=== PATIENT | male | born 1980 | race Caucasian/White ===

== ENCOUNTER 2018-02-06 23:59 | Emergency (ER) | payer SELFPAY ==
[~2018-02-06] VITALS: Ht 167.6 cm; Wt 90.0 kg
[2018-02-07 00:58] LABS: BASOPHILS % 0.1 % (0.0-2.0); EOSINOPHILS % 3.3 % (0.0-5.0); HEMATOCRIT. 40.5 % (42.0-52.0); HEMOGLOBIN. 14.2 g/dL (14.0-18.0); LYMPHOCYTES % 23.4 % (20.0-50.0); MEAN CORPUSCULAR HEMOGLOBIN 30.5 pg (28.0-32.0); MEAN CORPUSCULAR VOLUME 86.6 fL (80.0-94.0); MEAN PLATELET VOLUME 9.5 fl (7.4-10.4); MONOCYTES % 5.1 % (2.0-8.0); NEUTROPHILS % 68.1 % (40.0-76.0); PLATELET 192 x1000/uL (130-400); RED BLOOD CELL COUNT 4.67 mill/uL (4.7-6.1); RED CELL DISTRIBUTION WIDTH 12.4 % (11.6-14.6)
[2018-02-07 01:03] LABS: INR 1.1; PROTHROMBIN TIME 10.9 sec (9.4-11.6)
[2018-02-07 01:04] LABS: CHLORIDE 104 mEq/L (98-107)
[2018-02-07] MEDS ORDERED: MAGNESIUM/ALUMINUM HYDROXIDE/SIMETHICONE 30ML UDC PO STA (04:35)
[2018-02-07] MEDS ORDERED: VISCOUS LIDOCAINE 2% 15 ML UDC PO STA (04:35)
[2018-02-07 05:11] LABS: ETHANOL BLOOD < 10 mg/dL
[2018-02-07 05:30] VITALS: BP 103/57
== END 2018-02-07 05:43 | disposition home or self-care (01) ==
LOC: ER 23:59
DX: R07.89 Other chest pain (principal); E11.9 Type 2 diabetes mellitus without complications; F17.200 Nicotine dependence, unspecified, uncomplicated; Z98.890 Other specified postprocedural states
CPT/HCPCS: 36415; 71045; 80053; 83690; 83880; 84484; 85025; 85379; 85610; 93005; 99285; G0482; Z7610

== ENCOUNTER 2024-03-12 12:57 | Emergency (ER) | payer MEDICAID ==
[~2024-03-12] VITALS: Ht 182.9 cm; Wt 72.0 kg
[2024-03-12 13:11] VITALS: BP 108/56; PULSE 74; RESP 20; TEMP 98; O2SAT 99
[2024-03-12 14:04] LABS: BASOPHILS % 1.4 % (0.0-2.0); EOSINOPHILS % 2.3 % (0.0-5.0); HEMATOCRIT. 42.2 % (42.0-52.0); HEMOGLOBIN. 14.4 g/dL (14.0-18.0); LYMPHOCYTES % 35.9 % (20.0-50.0); MEAN CORPUSCULAR HEMOGLOBIN 31.8 pg (28.0-32.0); MEAN CORPUSCULAR HGB CONC 34.1 g/dL (31.0-37.0); MEAN CORPUSCULAR VOLUME 93.2 fL (80.0-94.0); MEAN PLATELET VOLUME 8.4 fl (7.4-10.4); MONOCYTES % 8.5 % (2.0-8.0); NEUTROPHILS % 51.9 % (40.0-76.0); PLATELET 280 x1000/uL (130-400); RED BLOOD CELL COUNT 4.52 mill/uL (4.7-6.1); RED CELL DISTRIBUTION WIDTH 13.1 % (11.6-14.6); WHITE BLOOD COUNT 5.2 x1000/uL (4.5-11.0)
[2024-03-12 14:07] LABS: CHLORIDE 107 mEq/L (98-107); POTASSIUM 3.6 mEq/L (3.5-5.1); SODIUM 140 mEq/L (136-145)
[2024-03-12] MEDS: SODIUM CHLORIDE 0.9% 1,000 ML IV ONE (14:07)
[2024-03-12 14:08] LABS: CARBON DIOXIDE 29 mEq/L (21-32)
[2024-03-12 14:09] LABS: CALCIUM 9.3 mg/dL (8.7-10.4)
[2024-03-12] MEDS: MORPHINE SULFATE 4 MG/ML INJ (FOR IV/IM USE) IV STA (14:12)
[2024-03-12] MEDS: ONDANSETRON HCL 4MG/2ML INJ IV STA (14:12)
[2024-03-12 14:14] LABS: CREATININE 0.9 mg/dL (0.6-1.3); GLUCOSE 96 mg/dL (70-105); UREA NITROGEN BLOOD 14 mg/dL (9-23)
[2024-03-12 14:16] LABS: ALANINE AMINOTRANSFERASE 14 IU/L (10-49); ALBUMIN 4.4 g/dL (3.2-4.8); ASPARTATE AMINOTRANSFERASE 20 IU/L (<34); BILIRUBIN DIRECT 0.5 mg/dL (<=3.0); BILIRUBIN TOTAL 1.6 mg/dL (0.1-1.0); PROTEIN TOTAL 7.1 g/dL (6.0-8.3)
[2024-03-12 14:30] LABS: ETHANOL BLOOD < 10 mg/dL (<10)
[2024-03-12 14:49] LABS: CLARITY URINE CLEAR (CLEAR); COLOR URINE YELLOW (YELLOW); GLUCOSE URINE NEGATIVE (NEGATIVE); KETONES URINE NEGATIVE (NEGATIVE); LEUKOCYTE ESTERASE URINE NEGATIVE (NEGATIVE); NITRITE URINE NEGATIVE (NEGATIVE); OCCULT BLOOD URINE NEGATIVE (NEGATIVE); PH URINE 8.5 (4.5-8.0); PROTEIN URINE NEGATIVE (NEGATIVE); SPECIFIC GRAVITY URINE 1.012 (1.005-1.030); UROBILINOGEN URINE 0.2 E.U./dL (0.2-1.0)
[2024-03-12 15:05] LABS: *AMPHETAMINES SCREEN URINE NEGATIVE (NEGATIVE); *BARBITURATES SCREEN URINE NEGATIVE (NEGATIVE); *BENZODIAZEPINES SCREEN URINE NEGATIVE (NEGATIVE); *COCAINE SCREEN URINE NEGATIVE (NEGATIVE); METHADONE URINE SCREEN NEGATIVE (NEGATIVE); OPIATES URINE SCREEN PRESUMPTIVE POSITIVE (NEGATIVE); PHENCYCLIDINE URINE SCREEN NEGATIVE (NEGATIVE)
[2024-03-12 15:06] LABS: CANNABINOID URINE SCREEN PRESUMPTIVE POSITIVE (NEGATIVE); ECSTASY MDMA SCREEN URINE NEGATIVE (NEGATIVE)
[2024-03-12] MEDS ORDERED: DIATR MEGLU/DIATRIZOATE SOLN 120ML ONE (17:07)
[2024-03-12] MEDS ORDERED: FAMO-135 MT (18:40)
[2024-03-12] MEDS ORDERED: OMEP20CA14 MT (18:40)
[2024-03-12] MEDS ORDERED: IOHEXOL-300 100 ML BOTTLE ONE (20:36)
== END 2024-03-12 21:10 | disposition home or self-care (01) ==
LOC: ER 13:05
DX: R10.13 Epigastric pain (principal)
CPT/HCPCS: 80076; 80305; 80048; 81003; 80320; 83690; 85025; 36415; 74176; 74177; 96374; 96375; 99285; Q9967; J2405; J2270; Q9963; J7030; Z7610; G0480

== ENCOUNTER 2025-04-20 11:11 | Emergency (ER) | payer MEDICAID ==
[~2025-04-20] VITALS: Ht 167.6 cm; Wt 55.0 kg
[~2025-04-20 11:11] MED LIST: FAMO-135 MT; FLUO10CA25 MT; OMEP20CA14 MT
[2025-04-20 11:32] VITALS: O2SAT 100
[2025-04-20 12:27] VITALS: BP 110/68; PULSE 60; RESP 14; TEMP 36.9; O2SAT 100
== END 2025-04-20 12:33 | disposition home or self-care (01) ==
LOC: ER 11:11
DX: Z02.79 Encounter for issue of other medical certificate (principal); E11.9 Type 2 diabetes mellitus without complications; Z79.899 Other long term (current) drug therapy
CPT/HCPCS: 99281; 99282